=== PATIENT | female | born 1995 | race African-American/Black ===

== ENCOUNTER 2016-12-17 13:43 | Inpatient (IN) | payer OTHER ==
[~2016-12-17] VITALS: Ht 157.5 cm; Wt 68.0 kg
[~2016-12-17 13:43] MED LIST: HYDR-2758 PO; ONDA4TAB10 SL; PREN1TAB58 PO; PROM25TA10 PO
[2016-12-17 15:00] LABS: NEG OBC AMNIO NEG; POS OBC AMNIO POS
[2016-12-17] MEDS ORDERED: BUTORPHANOL 2 MG/ML VIAL. IV PRN ×2 (15:45)
[2016-12-17] MEDS ORDERED: fentaNYL PF VIAL 100 MCG/2 ML VIAL IV PRN (15:45)
[2016-12-17] MEDS ORDERED: 0.9 % SODIUM CHLORIDE 10 ML DISP.SYRIN. IV PRN ×2 (15:45→22:30)
[2016-12-17] MEDS ORDERED: OXYTOCIN 30 UNIT/500 ML PREMIX 500 ML IV PRN ×2 (15:45→22:30)
[2016-12-17] MEDS ORDERED: IBUPROFEN 600 MG TABLET. PO PRN (15:45)
[2016-12-17] MEDS ORDERED: TERBUTALINE 1 MG/ML VIAL. SQ PRN (15:45)
[2016-12-17] MEDS ORDERED: LIDOCAINE 1% PF 30 ML VIAL. INJ PRN (15:45)
[2016-12-17 16:05] LABS: HEMATOCRIT 30.8 % (36.0-47.0); HEMOGLOBIN 10.1 g/dL (12.0-15.5); RED BLOOD COUNT 3.67 x10^6/uL (3.50-5.40); RED CELL DISTRIBUTION WIDTH 14.5 % (11.5-14.5); WHITE BLOOD COUNT 7.7 x10^3/uL (4.0-11.0)
[2016-12-17] MEDS: IV RINGERS,LACTATED 1000ML 1,000 ML IV SCH ×2 (19:12→20:49)
[2016-12-17] MEDS ORDERED: ROPIVacaine 0.2% IN 0.9%NACL PF 40 MG/20 ML DISP.SYRIN. ONE (21:12)
[2016-12-17] MEDS ORDERED: L&D EPIDURAL CASSETTE 0 ML EP ONE (21:12)
[2016-12-17] MEDS ORDERED: LIDOCAINE 2% PF Vial for OR 5 ML VIAL. ONE (21:33)
--- NOTE | 2016-12-17 22:17 | PDOC1 ---
OB - History Hx of Present Care: Good Care Ultrasounds: Normal mid trimester US Obstetrical Complications: None Medical Complications: None Past Family/Social History * Past Medical, Surgical, Family and Obstetric Histories reviewed from chart. Rubella: Immune RPR/VDRL: Negative GBS Status: Negative HBsAG: Negative OB - Chief Complaint & HPI Date of Admission: Date of Admission: Dec 17, 2016 at 13:43 Chief Complaint/History : 1 Para: 0 EGA: 38 Reason for admission: active labor Admission Nurse Assessment Rev: Yes Problems: OB - Admission Exam Physical Exam Vitals: VS - Last 72 Hours, by Label Date Time Temp Pulse Resp B/P (MAP) Pulse Ox O2 Delivery O2 Flow Rate FiO2 12/17/16 19:13 20 HEENT: Normal Heart: Regular Rate Lungs: Clear Abdomen: Gravid, Non tender, Soft Extremities: Edema Reflexes: Normal Cervical Dilatation: 3cm Effacement: 75% Station: -3 Membranes: Ruptured Amniotic Fluid: Clear Heart Rate: Normal Accelerations: Accelerations Present Decelerations: No decelerations Contractions on Admission: 6-10 Minutes Apart Intensity: Moderate Text A: 38 wks IUP SROM Active labor P: Admit for labor management. Start pitocin augmentation. LUKE OCONNOR Jr, MD Dec 17, 2016 22:17
--- NOTE | 2016-12-17 22:19 | PDOC ---
VAGINAL DELIVERY DATE DATE: 12/17/16 TIME: 22:17 : 1 Para: 1 EGA: 38 VAGINAL DELIVERY: VTX VACCUM ASSISTED: No PLACENTA: Spontaneous 8/9 SEX: Female WEIGHT Weight [2835 gm ] Nuchal Cord: Yes, Times 1 Amniotic Fluid: Clear PAIN: Natural EPISIOTOMY: Yes (2nd degree midline episiotomy) EXTENSION: No REPAIRED WITH 2-0 vicryl EBL 300 ml COMPLICATIONS none CONDITION pt. stable Signs of Intrauterine Infectio: None Shoulder Dystocia: No Problems: LUKE OCONNOR Jr, MD Dec 17, 2016 22:19
[2016-12-17] MEDS ORDERED: ZOLPIDEM 5 MG TABLET. PO PRN (22:30)
[2016-12-17] MEDS ORDERED: MAGNESIUM HYDROXIDE 2,400 MG/30 ML ORAL.SUSP. PO PRN (22:30)
[2016-12-17] MEDS ORDERED: diphenhydrAMINE HCL 25 MG CAPSULE PO PRN (22:30)
[2016-12-17] MEDS ORDERED: BENZOCAINE 20% TOPICAL AEROSOL SPRAY 57GM CAN. TP PRN (22:30)
[2016-12-17] MEDS ORDERED: SIMETHICONE 80 MG TAB.CHEW PO PRN (22:30)
[2016-12-17] MEDS ORDERED: MMR per PROTOCOL. MC PRN (22:30)
[2016-12-17] MEDS ORDERED: DOCUSATE SODIUM 100 MG CAPSULE. PO PRN (22:30)
[2016-12-17] MEDS ORDERED: HYDROCORTISONE 1% TOPICAL OINTMENT 30GM TUBE. TP PRN (22:30)
[2016-12-17] MEDS ORDERED: PHENYLEPH/MINERAL OIL/PETROLAT RECTAL OINTMENT 28GM TUBE. RC PRN (22:30)
[2016-12-17] MEDS ORDERED: ACETAMINOPHEN 325 MG TABLET. PO PRN (22:30)
[2016-12-17] MEDS ORDERED: MAG HYDROX/ALUMINUM HYD/SIMETH 30 ML ORAL.SUSP PO PRN (22:30)
[2016-12-18] MEDS: oxyCODONE/APAP 5/325 1 TAB TABLET PO PRN ×3 (00:01→23:06)
[2016-12-18 01:30] VITALS: BP 99/51
[2016-12-18 02:30] VITALS: BP 102/58
[2016-12-18] MEDS: IBUPROFEN 800 MG TABLET. PO PRN ×2 (07:49→18:31)
[2016-12-18 07:57] LABS: BASO # 0.1 x10^3/uL (0.0-0.2); BASO % 1 % (0-3); EOS % 0 % (0-3); HEMOGLOBIN 8.4 g/dL (12.0-15.5); LYMPH % 12 % (24-48); MEAN CORPUSCULAR HEMOGLOBIN 27 pg (25-35); MEAN CORPUSCULAR HGB CONC 33 g/dL (31-37); MEAN CORPUSCULAR VOLUME 83 fL (79-100); MONO % 9 % (0-9); NEUT % 78 % (31-73); PLATELET COUNT 171 x10^3/uL (140-400); RED BLOOD COUNT 3.12 x10^6/uL (3.50-5.40); RED CELL DISTRIBUTION WIDTH 14.2 % (11.5-14.5)
[2016-12-18 08:35] VITALS: BP 114/72
[2016-12-18] MEDS: FERROUS SULFATE 325 MG TABLET. PO SCH ×2 (09:01→18:31)
--- NOTE | 2016-12-18 09:05 | PDOC ---
OB Progress Note Date of Service 12/18/16 Time of Evaluation 0900 Notes Pt. feeling well. No complaints. Lab Laboratory Tests Test 12/17/16 14:20 12/17/16 15:30 12/18/16 07:45 Amniotic Fluid Swab Test Positive White Blood Count 7.7 x10^3/uL (4.0-11.0) 16.0 x10^3/uL (4.0-11.0) Red Blood Count 3.67 x10^6/uL (3.50-5.40) 3.12 x10^6/uL (3.50-5.40) Hemoglobin 10.1 g/dL (12.0-15.5) 8.4 g/dL (12.0-15.5) Hematocrit 30.8 % (36.0-47.0) 26.0 % (36.0-47.0) Mean Corpuscular Volume 84 fL (79-100) 83 fL (79-100) Mean Corpuscular Hemoglobin 28 pg (25-35) 27 pg (25-35) Mean Corpuscular Hemoglobin Concent 33 g/dL (31-37) 33 g/dL (31-37) Red Cell Distribution Width 14.5 % (11.5-14.5) 14.2 % (11.5-14.5) Platelet Count 211 x10^3/uL (140-400) 171 x10^3/uL (140-400) Neutrophils (%) (Auto) 78 % (31-73) Lymphocytes (%) (Auto) 12 % (24-48) Monocytes (%) (Auto) 9 % (0-9) Eosinophils (%) (Auto) 0 % (0-3) Basophils (%) (Auto) 1 % (0-3) Neutrophils # (Auto) 12.4 x10^3uL (1.8-7.7) Lymphocytes # (Auto) 2.0 x10^3/uL (1.0-4.8) Monocytes # (Auto) 1.5 x10^3/uL (0.0-1.1) Eosinophils # (Auto) 0.0 x10^3/uL (0.0-0.7) Basophils # (Auto) 0.1 x10^3/uL (0.0-0.2) Laboratory Tests Test 12/17/16 14:20 12/17/16 15:30 12/18/16 07:45 Amniotic Fluid Swab Test Positive White Blood Count 7.7 x10^3/uL (4.0-11.0) 16.0 x10^3/uL (4.0-11.0) Red Blood Count 3.67 x10^6/uL (3.50-5.40) 3.12 x10^6/uL (3.50-5.40) Hemoglobin 10.1 g/dL (12.0-15.5) 8.4 g/dL (12.0-15.5) Hematocrit 30.8 % (36.0-47.0) 26.0 % (36.0-47.0) Mean Corpuscular Volume 84 fL (79-100) 83 fL (79-100) Mean Corpuscular Hemoglobin 28 pg (25-35) 27 pg (25-35) Mean Corpuscular Hemoglobin Concent 33 g/dL (31-37) 33 g/dL (31-37) Red Cell Distribution Width 14.5 % (11.5-14.5) 14.2 % (11.5-14.5) Platelet Count 211 x10^3/uL (140-400) 171 x10^3/uL (140-400) Neutrophils (%) (Auto) 78 % (31-73) Lymphocytes (%) (Auto) 12 % (24-48) Monocytes (%) (Auto) 9 % (0-9) Eosinophils (%) (Auto) 0 % (0-3) Basophils (%) (Auto) 1 % (0-3) Neutrophils # (Auto) 12.4 x10^3uL (1.8-7.7) Lymphocytes # (Auto) 2.0 x10^3/uL (1.0-4.8) Monocytes # (Auto) 1.5 x10^3/uL (0.0-1.1) Eosinophils # (Auto) 0.0 x10^3/uL (0.0-0.7) Basophils # (Auto) 0.1 x10^3/uL (0.0-0.2) Medications Current Medications Sodium Chloride (Normal Saline Flush) 3 ml QSHIFT PRN IV AFTER MEDS AND BLOOD DRAWS; Start 12/17/16 at 15:45 Ringer's Solution 1,000 ml @ 125 mls/hr Q8H IV Last administered on 12/17/16 20:49; Start 12/17/16 at 15:41 Butorphanol Tartrate (Stadol) 1 mg PRN Q1HR PRN IV mild to moderate labor pain ; Start 12/17/16 at 15:45 Butorphanol Tartrate (Stadol) 2 mg PRN Q1HR PRN IV Severe labor pain; Start at 15:45 Fentanyl Citrate (Fentanyl 2ml Vial) 100 mcg PRN Q30MIN PRN IV Severe pain Last administered on 12/17/16 19:13; Start 12/17/16 at 15:45 Terbutaline Sulfate (Brethine) 0.25 mg 1X PRN PRN SQ SEE COMMENTS; Start at 15:45; Stop 12/18/16 at 15:44 Lidocaine HCl 30 ml 1X PRN PRN INJ SEE COMMENTS Last administered on 12/17/16 22:11; Start 12/17/16 at 15:45; Stop 12/19/16 at 15:44 Oxytocin/Sodium Chloride 500 ml @ 0 mls/hr CONT PRN PRN IV Post delivery bleeding Last administered on 12/17/16 19:13; Start 12/17/16 at 15:45 Ibuprofen (Motrin) 600 mg PRN Q6HRS PRN PO PAIN Last administered on 12/18/16 00:01; Start 12/17/16 at 15:45 Ropivacaine/ Fentanyl/NS 0 ml @ As Directed STK-MED ONCE EP ; Start 12/17/16 at 21:12; Stop 12/17/16 at 21:13; Status DC Ropivacaine 40 mg STK-MED ONCE .ROUTE ; Start 12/17/16 at 21:12; Stop 12/17/16 at 21:13; Status DC Lidocaine HCl (Lidocaine Pf 2% Vial) 5 ml STK-MED ONCE .ROUTE ; Start 12/17/16 at 21:33; Stop 12/17/16 at 21:34; Status DC Sodium Chloride (Normal Saline Flush) 10 ml QSHIFT PRN IV AFTER MEDS AND BLOOD DRAWS; Start 12/17/16 at 22:30 Oxytocin/Sodium Chloride 500 ml @ 62.5 mls/hr CONT PRN IV SEE I/O RECORD; Start 12/17/16 at 22:30; Stop 12/18/16 at 06:29; Status DC Acetaminophen (Tylenol) 650 mg PRN Q6HRS PRN PO MILD PAIN / TEMP; Start at 22:30 Ibuprofen (Motrin) 800 mg PRN Q8HRS PRN PO INFLAMMATION/PAIN PREVENTION Last administered on 12/18/16 07:49; Start 12/17/16 at 22:30 Docusate Sodium (Colace) 100 mg PRN BID PRN PO CONSTIPATION Last administered on 12/18/16 09:01; Start 12/17/16 at 22:30 Magnesium Hydroxide (Milk Of Magnesia) 2,400 mg PRN DAILY PRN PO CONSTIPATION; Start 12/17/16 at 22:30 Al Hydroxide/Mg Hydroxide (Mylanta Plus Xs) 30 ml PRN Q4HRS PRN PO HEARTBURN / GAS; Start 12/17/16 at 22:30 Simethicone (Gas-X) 80 mg PRN AFTMEALHC PRN PO GAS / BLOATING; Start 12/17/16 at 22:30 Diphenhydramine HCl (Benadryl) 25 mg PRN Q6HRS PRN PO ITCHING; Start 12/17/16 at 22:30 Benzocaine (Americaine) 1 spray PRN QID PRN TP TOPICAL PAIN; Start 12/17/16 at 22:30 Phenyleph/Shark Oil/Min Oil/Petrol (Preparation H) 1 monica PRN QID PRN RC RECTAL PAIN; Start 12/17/16 at 22:30 Hydrocortisone (Cortaid) 1 monica PRN QID PRN TP PERINEAL PAIN; Start 12/17/16 at 22:30 Ferrous Sulfate (Feosol) 325 mg BIDWMEALS PO Last administered on 12/18/16 09: 01; Start 12/18/16 at 08:00 Zolpidem Tartrate (Ambien) 5 mg PRN QHS PRN PO INSOMNIA, MAY REPEAT X1; Start 12/17/16 at 22:30 Info (Do NOT chart on this placeholder) 1 ea 1X PRN PRN MC SEE COMMENTS; Start 12/17/16 at 22:30 Info (Do NOT chart on this placeholder) 1 ea 1X PRN PRN MC SEE COMMENTS; Start 12/17/16 at 22:30 Oxycodone/ Acetaminophen (Percocet 5/325) 2 tab PRN Q4HRS PRN PO MODERATE PAIN , SEVERE PAIN Last administered on 12/18/16t 00:01; Start 12/17/16 at 22:30 Active Scripts Active Zofran Odt (Ondansetron) 4 Mg Tab.rapdis 1 Tab SL PRN Q8HRS PRN Vitamins ( Vits W-Ca,Fe,Fa(<1MG)) 1 Each Tablet 1 Tab PO DAILY Hydrocodone-Apap 5-325 (Hydrocodone Bit/Acetaminophen) 1 Each Tablet 1 Tab PO PRN Q6HRS PRN Promethazine Hcl 25 Mg Tablet 1 Tab PO PRN Q6HRS Exam Abd: soft, non tender, fundus firm Assessment PPD#1 s/p Plan of Care: Continue current Tx, Mgmt LUKE OCONNOR Jr, MD Dec 18, 2016 09:04
[2016-12-18 13:18] LABS: RPR REFLEX Non Reactive (Non Reactive)
[2016-12-18 14:29] VITALS: BP 104/62
[2016-12-18 18:20] VITALS: BP 104/65
[2016-12-18 23:00] VITALS: BP 105/66
[2016-12-19] MEDS: IBUPROFEN 800 MG TABLET. PO PRN ×2 (03:50→11:48)
[2016-12-19] MEDS: oxyCODONE/APAP 5/325 1 TAB TABLET PO PRN (03:51)
[2016-12-19 03:56] VITALS: BP 112/66
--- NOTE | 2016-12-19 08:34 | PDOC ---
OB Progress Note Date of Service 12/19/16 Time of Evaluation 0830 Notes Pt. feeling well. No complaints. Lab Laboratory Tests Test 12/17/16 14:20 12/17/16 15:30 12/18/16 07:45 Amniotic Fluid Swab Test Positive White Blood Count 7.7 x10^3/uL (4.0-11.0) 16.0 x10^3/uL (4.0-11.0) Red Blood Count 3.67 x10^6/uL (3.50-5.40) 3.12 x10^6/uL (3.50-5.40) Hemoglobin 10.1 g/dL (12.0-15.5) 8.4 g/dL (12.0-15.5) Hematocrit 30.8 % (36.0-47.0) 26.0 % (36.0-47.0) Mean Corpuscular Volume 84 fL (79-100) 83 fL (79-100) Mean Corpuscular Hemoglobin 28 pg (25-35) 27 pg (25-35) Mean Corpuscular Hemoglobin Concent 33 g/dL (31-37) 33 g/dL (31-37) Red Cell Distribution Width 14.5 % (11.5-14.5) 14.2 % (11.5-14.5) Platelet Count 211 x10^3/uL (140-400) 171 x10^3/uL (140-400) RPR Titer Additional Testing Non reactive (Non Reactive) Neutrophils (%) (Auto) 78 % (31-73) Lymphocytes (%) (Auto) 12 % (24-48) Monocytes (%) (Auto) 9 % (0-9) Eosinophils (%) (Auto) 0 % (0-3) Basophils (%) (Auto) 1 % (0-3) Neutrophils # (Auto) 12.4 x10^3uL (1.8-7.7) Lymphocytes # (Auto) 2.0 x10^3/uL (1.0-4.8) Monocytes # (Auto) 1.5 x10^3/uL (0.0-1.1) Eosinophils # (Auto) 0.0 x10^3/uL (0.0-0.7) Basophils # (Auto) 0.1 x10^3/uL (0.0-0.2) Medications Current Medications Sodium Chloride (Normal Saline Flush) 3 ml QSHIFT PRN IV AFTER MEDS AND BLOOD DRAWS; Start 12/17/16 at 15:45 Ringer's Solution 1,000 ml @ 125 mls/hr Q8H IV Last administered on 12/17/16 20:49; Start 12/17/16 at 15:41 Butorphanol Tartrate (Stadol) 1 mg PRN Q1HR PRN IV mild to moderate labor pain ; Start 12/17/16 at 15:45 Butorphanol Tartrate (Stadol) 2 mg PRN Q1HR PRN IV Severe labor pain; Start at 15:45 Fentanyl Citrate (Fentanyl 2ml Vial) 100 mcg PRN Q30MIN PRN IV Severe pain Last administered on 12/17/16 19:13; Start 12/17/16 at 15:45 Terbutaline Sulfate (Brethine) 0.25 mg 1X PRN PRN SQ SEE COMMENTS; Start at 15:45; Stop 12/18/16 at 15:44; Status DC Lidocaine HCl 30 ml 1X PRN PRN INJ SEE COMMENTS Last administered on 12/17/16 22:11; Start 12/17/16 at 15:45; Stop 12/19/16 at 15:44 Oxytocin/Sodium Chloride 500 ml @ 0 mls/hr CONT PRN PRN IV Post delivery bleeding Last administered on 12/17/16 19:13; Start 12/17/16 at 15:45 Ibuprofen (Motrin) 600 mg PRN Q6HRS PRN PO PAIN Last administered on 12/18/16 00:01; Start 12/17/16 at 15:45 Ropivacaine/ Fentanyl/NS 0 ml @ As Directed STK-MED ONCE EP ; Start 12/17/16 at 21:12; Stop 12/17/16 at 21:13; Status DC Ropivacaine 40 mg STK-MED ONCE .ROUTE ; Start 12/17/16 at 21:12; Stop 12/17/16 at 21:13; Status DC Lidocaine HCl (Lidocaine Pf 2% Vial) 5 ml STK-MED ONCE .ROUTE ; Start 12/17/16 at 21:33; Stop 12/17/16 at 21:34; Status DC Sodium Chloride (Normal Saline Flush) 10 ml QSHIFT PRN IV AFTER MEDS AND BLOOD DRAWS; Start 12/17/16 at 22:30 Oxytocin/Sodium Chloride 500 ml @ 62.5 mls/hr CONT PRN IV SEE I/O RECORD; Start 12/17/16 at 22:30; Stop 12/18/16 at 06:29; Status DC Acetaminophen (Tylenol) 650 mg PRN Q6HRS PRN PO MILD PAIN / TEMP; Start at 22:30 Ibuprofen (Motrin) 800 mg PRN Q8HRS PRN PO INFLAMMATION/PAIN PREVENTION Last administered on 12/19/16 03:50; Start 12/17/16 at 22:30 Docusate Sodium (Colace) 100 mg PRN BID PRN PO CONSTIPATION Last administered on 12/18/16 09:01; Start 12/17/16 at 22:30 Magnesium Hydroxide (Milk Of Magnesia) 2,400 mg PRN DAILY PRN PO CONSTIPATION; Start 12/17/16 at 22:30 Al Hydroxide/Mg Hydroxide (Mylanta Plus Xs) 30 ml PRN Q4HRS PRN PO HEARTBURN / GAS; Start 12/17/16 at 22:30 Simethicone (Gas-X) 80 mg PRN AFTMEALHC PRN PO GAS / BLOATING; Start 12/17/16 at 22:30 Diphenhydramine HCl (Benadryl) 25 mg PRN Q6HRS PRN PO ITCHING; Start 12/17/16 at 22:30 Benzocaine (Americaine) 1 spray PRN QID PRN TP TOPICAL PAIN; Start 12/17/16 at 22:30 Phenyleph/Shark Oil/Min Oil/Petrol (Preparation H) 1 monica PRN QID PRN RC RECTAL PAIN; Start 12/17/16 at 22:30 Hydrocortisone (Cortaid) 1 monica PRN QID PRN TP PERINEAL PAIN; Start 12/17/16 at 22:30 Ferrous Sulfate (Feosol) 325 mg BIDWMEALS PO Last administered on 12/18/16 18: 31; Start 12/18/16 at 08:00 Zolpidem Tartrate (Ambien) 5 mg PRN QHS PRN PO INSOMNIA, MAY REPEAT X1; Start 12/17/16 at 22:30 Info (Do NOT chart on this placeholder) 1 ea 1X PRN PRN MC SEE COMMENTS; Start 12/17/16 at 22:30 Info (Do NOT chart on this placeholder) 1 ea 1X PRN PRN MC SEE COMMENTS; Start 12/17/16 at 22:30 Oxycodone/ Acetaminophen (Percocet 5/325) 2 tab PRN Q4HRS PRN PO MODERATE PAIN , SEVERE PAIN Last administered on 12/19/16t 03:51; Start 12/17/16 at 22:30 Active Scripts Active Zofran Odt (Ondansetron) 4 Mg Tab.rapdis 1 Tab SL PRN Q8HRS PRN Vitamins ( Vits W-Ca,Fe,Fa(<1MG)) 1 Each Tablet 1 Tab PO DAILY Hydrocodone-Apap 5-325 (Hydrocodone Bit/Acetaminophen) 1 Each Tablet 1 Tab PO PRN Q6HRS PRN Promethazine Hcl 25 Mg Tablet 1 Tab PO PRN Q6HRS Exam Abd: soft, non tender, fundus firm Assessment PPD#2 s/p Plan of Care: See new orders (D/c home) LUKE OCONNOR Jr, MD Dec 19, 2016 08:34
--- NOTE | 2016-12-19 08:35 | DISCH ---
DISCHARGE INSTRUCTIONS Condition on Discharge Condition on Discharge: Stable Activity After Discharge Activity Instructions for Disc: Activity as tolerated Lifting Instructions after Dis: No heavy lifting Driving Instructions after Dis: Do not drive today Diet after Discharge Diet after Discharge: Regular Contacting the DRBrittany after DC Call your doctor for: Concerns you may have Follow-Up Follow up with: Dr. Jennings in 6 weeks. LUKE JENNINGS Jr, MD Dec 19, 2016 08:35
[2016-12-19] MEDS ORDERED: IBUP-1060 PO (08:36)
[2016-12-19] MEDS ORDERED: DOCU-109 PO (08:36)
[2016-12-19] MEDS ORDERED: OXYC-323 PO (08:36)
[2016-12-19] MEDS: FERROUS SULFATE 325 MG TABLET. PO SCH (09:31)
[2016-12-19 13:50] VITALS: BP 107/71
== END 2016-12-19 14:14 | disposition home or self-care (01) | DRG 775 ==
LOC: 3 SO LND 13:43 → OBSVTOIN 15:46 → 3 SO LND 12-18 01:30
PROVIDERS: ADMIT Obstetrics & Gynecology; ATTEND Obstetrics & Gynecology
PROC: 0W8NXZZ Division of Female Perineum, External Approach (ICD-10-PCS; principal; 2016-12-17)
PROC: 10E0XZZ Delivery of Products of Conception, External Approach (ICD-10-PCS; 2016-12-17)
DX: O69.81X0 Labor and delivery complicated by cord around neck, without compression, not applicable or unspecified (principal); Z37.0 Single live birth; Z3A.38 38 weeks gestation of pregnancy
CPT/HCPCS: 36415; 84112; 85027; 86593; 86850; 86900; 86901; C1887; G0378; G0379; J2001; J2590; J3010; J7120

== ENCOUNTER 2018-04-29 10:49 | Observation (INO) | payer SELFPAY ==
[~2018-04-29 10:49] MED LIST changes: +DOCU-109 PO; -HYDR-2758 PO; +HYDR-2761 PO; +IBUP-1060 PO; +OXYC1TAB15 PO
[2018-04-29] MEDS ORDERED: IV RINGERS,LACTATED 1000ML 1,000 ML IV SCH (11:30)
[2018-04-29 11:47] LABS: BILIRUBIN,URINE SMALL (NEG); CLARITY,URINE CLEAR; COLOR,URINE YELLOW; NITRITE,URINE NEGATIVE (NEG); PH,URINE 6.5; PROTEIN,URINE NEGATIVE (NEG-TRACE)
[2018-04-29 11:53] LABS: BARBITURATES NEG (NEG); BENZODIAZEPINES NEG (NEG); CANNABINOIDS POS (NEG); COCAINE NEG (NEG); METHADONE NEG (NEG); OPIATES NEG (NEG); PHENCYCLIDINE NEG (NEG)
[2018-04-29 11:54] LABS: AMPHETAMINE/METHAMPHETAMINE NEG (NEG)
[2018-04-29 12:04] LABS: SQUAMOUS EPITHELIAL CELL,UR MOD /LPF
[2018-04-29 12:07] LABS: BACTERIA,URINE MODERATE /HPF (0-FEW); RBC,URINE OCC /HPF (0-2)
[2018-04-29 13:42] LABS: BASO % 0 % (0-3); EOS % 1 % (0-3); HEMATOCRIT 26.2 % (36.0-47.0); HEMOGLOBIN 8.9 g/dL (12.0-15.5); LYMPH % 30 % (24-48); MEAN CORPUSCULAR HEMOGLOBIN 28 pg (25-35); MEAN CORPUSCULAR HGB CONC 34 g/dL (31-37); MEAN CORPUSCULAR VOLUME 84 fL (79-100); MONO # 0.5 x10^3/uL (0.0-1.1); MONO % 8 % (0-9); NEUT # 4.1 x10^3uL (1.8-7.7); NEUT % 61 % (31-73); PLATELET COUNT 156 x10^3/uL (140-400); RED BLOOD COUNT 3.12 x10^6/uL (3.50-5.40); WHITE BLOOD COUNT 6.6 x10^3/uL (4.0-11.0)
[2018-04-29 13:56] LABS: CALCIUM 8.2 mg/dL (8.5-10.1); CREATININE 0.6 mg/dL (0.6-1.0); GFR 152.7; POTASSIUM 3.2 mmol/L (3.5-5.1)
[2018-04-29 14:05] LABS: ALBUMIN 2.4 g/dL (3.4-5.0); ALBUMIN/GLOBULIN RATIO 0.8 (1.0-1.7); TOTAL BILIRUBIN 0.1 mg/dL (0.2-1.0); TOTAL PROTEIN 5.3 g/dL (6.4-8.2)
== END 2018-04-29 15:05 | disposition home or self-care (01) ==
LOC: 3 SO LND 10:49
PROVIDERS: ADMIT Specialist; ATTEND Specialist
DX: O21.2 Late vomiting of pregnancy (principal); O26.892 Other specified pregnancy related conditions, second trimester; R19.7 Diarrhea, unspecified; R11.0 Nausea; Z3A.24 24 weeks gestation of pregnancy
CPT/HCPCS: 36415; 80053; 80307; 81001; 84443; 85025; 87086; G0378; G0379

== ENCOUNTER 2018-07-09 13:30 | Observation (INO) | payer OTHER | END 2018-07-09 14:10 | disposition home or self-care (01) | LOC: 3 SO LND 13:30 | PROVIDERS: ADMIT Specialist; ATTEND Specialist | DX: O9A.213 Injury, poisoning and certain other consequences of external causes complicating pregnancy, third trimester (principal); M25.552 Pain in left hip; M25.562 Pain in left knee; Z3A.34 34 weeks gestation of pregnancy; W00.0XXA Fall on same level due to ice and snow, initial encounter; Y93.89 Activity, other specified; Y92.89 Other specified places as the place of occurrence of the external cause | CPT/HCPCS: 59025; G0379 ==

== ENCOUNTER 2018-07-09 14:34 | Observation (INO) | payer OTHER ==
[~2018-07-09] VITALS: Ht 157.5 cm; Wt 68.0 kg
[2018-07-09] MEDS ORDERED: ACETAMINOPHEN 500 MG TABLET PO ONE (15:30)
--- NOTE | 2018-07-09 16:05 | PHYS DOC ---
Past Medical History Past Medical History: No Pertinent History Past Surgical History: No Surgical History Alcohol Use: None Drug Use: None Adult General Chief Complaint Chief Complaint: HIP PAIN HPI HPI Patient is a 22 year old female who presents with 8 months slipped and fell on her driveway at 12 PM today. Patient complains of left hip and left abdomen pain and denies vaginal bleeding. Patient was evaluated by Dr. Larson in OB before she was brought back down to the ED. Patient currently states that she has some lower abdomen cramping and hip pain that she rates at 8 out of 10. Review of Systems Review of Systems Constitutional: Denies fever or chills [] Eyes: Denies change in visual acuity, redness, or eye pain [] HENT: Denies nasal congestion or sore throat [] Respiratory: Denies cough or shortness of breath [] Cardiovascular: No additional information not addressed in HPI [] GI: Left side and lower abdominal pain, denies nausea, vomiting, bloody stools or diarrhea [] : Denies dysuria or hematuria [] Musculoskeletal: Denies back pain or left hip joint pain [] Integument: Denies rash or skin lesions [] Neurologic: Denies headache, focal weakness or sensory changes [] All other systems were reviewed and found to be within normal limits, except as documented in this note. Current Medications Current Medications Current Medications Medications (Trade) Dose Ordered Sig/Kelly Start Time Stop Time Status Last Admin Dose Admin Acetaminophen (Tylenol) 1,000 mg 1X ONCE 07/09/18 15:30 07/09/18 15:31 DC 07/09/18 15:30 1,000 MG Allergies Allergies Allergies Coded Allergies Type Severity Reaction Last Updated Verified No Known Drug Allergies 12/23/14 No Physical Exam Physical Exam Constitutional: Well developed, well nourished, no acute distress, non-toxic appearance. [] HENT: Normocephalic, atraumatic, bilateral external ears normal, oropharynx moist, no oral exudates, nose normal. [] Eyes: PERRLA, EOMI, conjunctiva normal, no discharge. [] Neck: Normal range of motion, no tenderness, supple, no stridor. [] Cardiovascular:Heart rate regular rhythm, no murmur [] Lungs & Thorax: Bilateral breath sounds clear to auscultation [] Abdomen: Bowel sounds normal, soft, left lower side tenderness, no masses, no pulsatile masses. [] Skin: Warm, dry, no erythema, no rash. [] Back: No tenderness, no CVA tenderness. [] Extremities: Left Hip tenderness, no cyanosis, no clubbing, ROM intact, no edema. [] Neurologic: Alert and oriented X 3, normal motor function, normal sensory function, no focal deficits noted. [] Psychologic: Affect normal, judgement normal, mood normal. [] Current Patient Data Vital Signs Vital Signs Date Time Temp Pulse Resp B/P (MAP) Pulse Ox O2 Delivery O2 Flow Rate FiO2 07/09/18 15:30 98.3 100 18 117/60 (79) 99 Room Air 98.3 EKG EKG [] Radiology/Procedures Radiology/Procedures [] Course & Med Decision Making Course & Med Decision Making Patient is a 22 year old female who presents with 8 months slipped and fell on her driveway at 12 PM today. Patient complains of left hip and left abdomen pain and denies vaginal bleeding. Patient was evaluated by Dr. Larson in OB before she was brought back down to the ED. Patient currently states that she has some lower abdomen cramping and hip pain that she rates at 8 out of 10. Patient has intact range of motion of the left leg at the hip joint. It is tender with movement but she is able to move at the hip joint in all directions. Patient is up and walking in room and can bear weight on the leg. Patient is complaining of increased lower abdominal cramping more so that she had when she was being observed in OB. Patient still has no vaginal bleeding or discharge. Patient is refusing any x-rays. There is no deformity at the hip or bruising seen. No bruising to the abdomen. Although the abdomen on that left side is tender to palpate. I have called he states to send the patient back to OB. Patient is discharged from the ED and sent back to OB. Dragon Disclaimer Dragon Disclaimer This electronic medical record was generated, in whole or in part, using a voice recognition dictation system. Departure Departure Impression: Primary Impression: Fall Additional Impressions: Hip pain Lower abdominal pain Disposition: HOME, SELF-CARE Condition: STABLE Referrals: NO PCP (PCP) Patient Instructions: Contusion, Fall Prevention and Home Safety, Hip Pain Additional Instructions: Continue taking ibuprofen to using a heating pad. Plenty of fluids. Patient have any kind of vaginal bleeding or increased abdominal pain come to the ER or call your doctor immediately. Problem Qualifiers Primary Impression: Fall Encounter type: initial encounter Qualified Codes: W19.XXXA - Unspecified fall, initial encounter Additional Impressions: Hip pain Laterality: left Qualified Codes: M25.552 - Pain in left hip MOODY MEDINA APRN Jul 09, 2018 16:05
[2018-07-09 16:17] VITALS: BP 107/71
== END 2018-07-09 17:45 | disposition home or self-care (01) ==
LOC: ER 14:34 → 3 SO LND 16:11
PROVIDERS: ADMIT Specialist; ATTEND Specialist
DX: O9A.213 Injury, poisoning and certain other consequences of external causes complicating pregnancy, third trimester (principal); M25.552 Pain in left hip; R10.9 Unspecified abdominal pain; Z3A.34 34 weeks gestation of pregnancy; W01.0XXA Fall on same level from slipping, tripping and stumbling without subsequent striking against object, initial encounter; Y92.89 Other specified places as the place of occurrence of the external cause
CPT/HCPCS: 99284; G0378; G0379

== ENCOUNTER 2018-08-03 08:22 | Inpatient (IN) | payer OTHER ==
[~2018-08-03] VITALS: Ht 157.5 cm; Wt 66.7 kg
[2018-08-03] MEDS ORDERED: OXYTOCIN 30 UNIT/500 ML PREMIX 500 ML IV ONE (08:33)
[2018-08-03] MEDS ORDERED: LIDOCAINE 1% PF 30 ML VIAL. ONE (08:33)
[2018-08-03] MEDS ORDERED: OXYTOCIN PREMIX 30 UNIT/500 ML BAG. IV ONE (09:00)
[2018-08-03] MEDS ORDERED: OXYTOCIN 10 UNIT/ML VIAL. ONE (09:00)
--- NOTE | 2018-08-03 09:13 | PDOC1 ---
OB - History Hx of Present Care: Good Care Ultrasounds: Normal mid trimester US Obstetrical Complications: None Medical Complications: None Past Family/Social History * Past Medical, Surgical, Family and Obstetric Histories reviewed from chart. Rubella: Immune RPR/VDRL: Negative GBS Status: Negative HBsAG: Negative OB - Chief Complaint & HPI Date of Admission: Date of Admission: Aug 03, 2018 at 08:34 Chief Complaint/History : 2 Para: 1 EGA: 38 Reason for admission: active labor Admission Nurse Assessment Rev: Yes OB - Admission Exam Physical Exam HEENT: Normal Heart: Regular Rate Lungs: Clear Abdomen: Gravid, Non tender, Soft Extremities: Edema Reflexes: Normal Cervical Dilatation: 10cm Effacement: 100% Station: +2 Membranes: Intact Heart Rate: Normal Accelerations: Accelerations Present Decelerations: No decelerations Contractions on Admission: < 5 Minutes Apart Intensity: Firm Text A: 38 wks IUP Active labor P: Admit for expectant delivery. LUKE OCONNOR Jr, MD Aug 03, 2018 09:13
[2018-08-03] MEDS ORDERED: MAG HYDROX/ALUMINUM HYD/SIMETH 30 ML ORAL.SUSP PO PRN (09:15)
[2018-08-03] MEDS ORDERED: BENZOCAINE 20% TOPICAL AEROSOL SPRAY 57GM CAN. TP PRN (09:15)
[2018-08-03] MEDS ORDERED: OXYTOCIN 30 UNIT/500 ML PREMIX 500 ML IV PRN (09:15)
[2018-08-03] MEDS ORDERED: ZOLPIDEM 5 MG TABLET. PO PRN (09:15)
[2018-08-03] MEDS ORDERED: SIMETHICONE 80 MG TAB.CHEW PO PRN (09:15)
[2018-08-03] MEDS ORDERED: 0.9 % SODIUM CHLORIDE 10 ML DISP.SYRIN. IV PRN ×2 (09:15→09:45)
[2018-08-03] MEDS ORDERED: HYDROCORTISONE 1% TOPICAL OINTMENT 30GM TUBE. TP PRN (09:15)
[2018-08-03] MEDS ORDERED: MAGNESIUM HYDROXIDE 2,400 MG/30 ML ORAL.SUSP. PO PRN (09:15)
[2018-08-03] MEDS ORDERED: MMR per PROTOCOL. MC PRN (09:15)
[2018-08-03] MEDS ORDERED: OXYTOCIN 10 UNIT/ML VIAL. IM ONE (09:15)
[2018-08-03] MEDS ORDERED: diphenhydrAMINE HCL 25 MG CAPSULE PO PRN (09:15)
[2018-08-03] MEDS ORDERED: PHENYLEPH/MINERAL OIL/PETROLAT RECTAL OINTMENT 28GM TUBE. RC PRN (09:15)
[2018-08-03] MEDS ORDERED: ACETAMINOPHEN 325 MG TABLET. PO PRN (09:15)
--- NOTE | 2018-08-03 09:15 | PDOC ---
VAGINAL DELIVERY DATE DATE: 08/03/18 TIME: 09:14 : 2 Para: 2 EGA: 38 VAGINAL DELIVERY: VTX VACCUM ASSISTED: No PLACENTA: Spontaneous 8/9 SEX: Female WEIGHT Weight [5 lbs. 13 oz. ] Nuchal Cord: No Amniotic Fluid: Clear PAIN: Natural EPISIOTOMY: No EXTENSION: Yes (1st degree midline laceration; hemostatic) REPAIRED WITH none EBL 300 ml COMPLICATIONS none CONDITION pt. stable Signs of Intrauterine Infectio: None Shoulder Dystocia: No LUKE OCONNOR Jr, MD Aug 03, 2018 09:15
[2018-08-03] MEDS ORDERED: IV RINGERS,LACTATED 1000ML 1,000 ML IV SCH (09:34)
[2018-08-03 09:39] LABS: AMPHETAMINE/METHAMPHETAMINE NEG (NEG); BARBITURATES NEG (NEG); BENZODIAZEPINES NEG (NEG); CANNABINOIDS POS (NEG); COCAINE NEG (NEG); METHADONE NEG (NEG); OPIATES NEG (NEG); PHENCYCLIDINE NEG (NEG)
[2018-08-03] MEDS: oxyCODONE/APAP 5/325 1 TAB TABLET PO PRN ×3 (09:44→22:50)
[2018-08-03] MEDS ORDERED: IBUPROFEN 400 MG TABLET. PO PRN (09:45)
[2018-08-03] MEDS: IBUPROFEN 400 MG TABLET. PO PRN ×2 (09:45→22:50)
[2018-08-03] MEDS ORDERED: LIDOCAINE 1% PF 30 ML VIAL. INJ PRN (09:45)
[2018-08-03 10:52] LABS: BASO % 0 % (0-3); EOS % 0 % (0-3); HEMATOCRIT 31.6 % (36.0-47.0); HEMOGLOBIN 10.1 g/dL (12.0-15.5); LYMPH # 1.2 x10^3/uL (1.0-4.8); LYMPH % 15 % (24-48); MEAN CORPUSCULAR HEMOGLOBIN 26 pg (25-35); MEAN CORPUSCULAR HGB CONC 32 g/dL (31-37); MEAN CORPUSCULAR VOLUME 82 fL (79-100); MONO # 0.5 x10^3/uL (0.0-1.1); MONO % 6 % (0-9); NEUT # 6.6 x10^3uL (1.8-7.7); NEUT % 79 % (31-73); PLATELET COUNT 212 x10^3/uL (140-400); RED BLOOD COUNT 3.87 x10^6/uL (3.50-5.40); RED CELL DISTRIBUTION WIDTH 14.1 % (11.5-14.5); WHITE BLOOD COUNT 8.4 x10^3/uL (4.0-11.0)
[2018-08-03 14:00] VITALS: BP 101/56
[2018-08-03] MEDS: DOCUSATE SODIUM 100 MG CAPSULE. PO PRN (16:13)
[2018-08-03 17:03] VITALS: BP 98/58
[2018-08-03 20:17] LABS: BILIRUBIN,URINE NEGATIVE (NEG); CLARITY,URINE CLEAR; COLOR,URINE YELLOW; NITRITE,URINE NEGATIVE (NEG); PH,URINE 6.5; PROTEIN,URINE NEGATIVE (NEG-TRACE); UROBILINOGEN,URINE 0.2 mg/dL (0.2 mg/dL)
[2018-08-03 20:22] LABS: BACTERIA,URINE FEW /HPF (0-FEW); RBC,URINE TNTC /HPF (0-2); SQUAMOUS EPITHELIAL CELL,UR MOD /LPF; WBC,URINE OCC /HPF (0-4)
[2018-08-03 21:30] VITALS: BP 116/74
[2018-08-04 02:00] VITALS: BP 114/79
[2018-08-04 04:37] LABS: BASO % 0 % (0-3); EOS # 0.1 x10^3/uL (0.0-0.7); EOS % 1 % (0-3); HEMATOCRIT 27.2 % (36.0-47.0); HEMOGLOBIN 8.6 g/dL (12.0-15.5); LYMPH # 3.3 x10^3/uL (1.0-4.8); LYMPH % 25 % (24-48); MEAN CORPUSCULAR HEMOGLOBIN 26 pg (25-35); MEAN CORPUSCULAR HGB CONC 31 g/dL (31-37); MEAN CORPUSCULAR VOLUME 81 fL (79-100); MONO # 1.4 x10^3/uL (0.0-1.1); MONO % 10 % (0-9); NEUT # 8.5 x10^3uL (1.8-7.7); NEUT % 64 % (31-73); PLATELET COUNT 201 x10^3/uL (140-400); RED BLOOD COUNT 3.35 x10^6/uL (3.50-5.40); RED CELL DISTRIBUTION WIDTH 13.9 % (11.5-14.5); WHITE BLOOD COUNT 13.3 x10^3/uL (4.0-11.0)
[2018-08-04 06:20] VITALS: BP 102/62
[2018-08-04] MEDS: DOCUSATE SODIUM 100 MG CAPSULE. PO PRN ×2 (06:30→16:18)
[2018-08-04] MEDS: oxyCODONE/APAP 5/325 1 TAB TABLET PO PRN ×2 (06:32→16:19)
--- NOTE | 2018-08-04 08:23 | PDOC ---
Provider Note Provider Note Doing well VSS Uterus NTTP FU in AM ELIS GRIJALVA MD Aug 04, 2018 08:23
[2018-08-04] MEDS: FERROUS SULFATE 325 MG TABLET. PO SCH ×2 (08:30→16:18)
[2018-08-04 09:45] VITALS: BP 94/55
[2018-08-04 13:10] VITALS: BP 104/69
--- NOTE | 2018-08-04 16:27 | NUR ---
SS following up with referral regarding limited care and positive screen for Marijuana. SS discussed with and mother RN prior to meeting with mother in room. SS contacted Dr. Larson[facility] clinic who notified SS that pt received the first half of her care at [facility] and began seeing Dr. Larson on 05/07/2018. Dr. [facility]arson[facility] clinic reported that pt was seen on 05/07/2018 and then on 07/10/2018 and weekly from 07/10/2018 to . SS met with infants mother in room to assess circumstances surrounding the referral. As observed, infants mother was holding infant and was bonding well with infant. Infants mother reported that her Medicaid was not active until the end of June and it was difficult to make the appointments prior to that because she could not afford the cost. Infants mother reported that she lives with her grandmother and her one year old daughter. She reported that she has good family support and her family helps to financially support her. Infants mother reported that she does not currently work or go to school. She reported that her grandmother helps care for her daughter. Infants mother reported that she has a car seat and all needed supplies for and transportation to and from appointments. Infants mother reported that she would like seen at [facility] for pediatric care and asked for assistance from RN to set up the first appointment. RN notified. SS discussed positive Marijuana screen with mother. Mother admitted to using Marijuana during . SS provided infants mother with resources and referral information for the [facility]IES program, WIC, and [facility]. SS made report to [facility] hotline for positive drug screen. Intake# [id number]. and mother RN notified.
[2018-08-04 23:17] VITALS: BP 109/73
[2018-08-05] MEDS: IBUPROFEN 400 MG TABLET. PO PRN ×2 (01:17→10:52)
[2018-08-05 06:12] VITALS: BP 88/56
[2018-08-05] MEDS: DOCUSATE SODIUM 100 MG CAPSULE. PO PRN (10:52)
[2018-08-05] MEDS: FERROUS SULFATE 325 MG TABLET. PO SCH (10:52)
[2018-08-05 11:54] VITALS: BP 105/73
--- NOTE | 2018-08-05 13:29 | PDOC3 ---
OB DISCHARGE SUMMARY DATE OF ADMISSION: 08/03/18 DATE OF DISCHARGE: 08/05/18 REASON FOR ADMISSION: Onset of labor INTRAPARTUM PROCEDURES: Spontanous Vag Deliv DISCHARGE DIAGNOSIS: Term Delivered DISCHARGE INFORMATION: Activity (ad kitty), Diet (regular), Instructions (pelvic rest x 6 wks) HOSPITAL COURSE Term gestation delivered without complications. LUKE OCONNOR Jr, MD Aug 05, 2018 13:29
--- NOTE | 2018-08-05 13:29 | DISCH ---
DISCHARGE INSTRUCTIONS Condition on Discharge Condition on Discharge: Stable Activity After Discharge Activity Instructions for Disc: Activity as tolerated Lifting Instructions after Dis: No heavy lifting Driving Instructions after Dis: Do not drive today Diet after Discharge Diet after Discharge: Regular Contacting the DRBrittany after DC Call your doctor for: Concerns you may have Follow-Up Follow up with: Dr. Larson in 1 week. LUKE OCONNOR Jr, MD Aug 05, 2018 13:29
[2018-08-05] MEDS ORDERED: IBUP-1060 PO (13:31)
--- NOTE | 2018-08-05 15:09 | NUR ---
Discharge Discharge instructions given to patient at this time. No questions or concerns noted. To follow up in [address] Larson.
--- NOTE | 2018-08-05 15:17 | NUR ---
SS following up with hotline report. SS received email from [facility] reporting the following: This report was not assigned for assessment so discharge planning would just be up to doctor and hospital staff. DAKOTA Huertas Habilitative Interventionist Child Protective Services [place] [facility] [phone] SS notified the floor.
== END 2018-08-05 15:50 | disposition home or self-care (01) | DRG 806 ==
LOC: 3 SO LND 08:22 → OBSVTOIN 08:34 → 3 NORTH 14:00
PROVIDERS: ADMIT Specialist; ATTEND Specialist
PROC: 10E0XZZ Delivery of Products of Conception, External Approach (ICD-10-PCS; principal; 2018-08-03)
PROC: 0HQ9XZZ Repair Perineum Skin, External Approach (ICD-10-PCS; 2018-08-03)
DX: O70.0 First degree perineal laceration during delivery (principal); R71.0 Precipitous drop in hematocrit; Z37.0 Single live birth; Z3A.38 38 weeks gestation of pregnancy
CPT/HCPCS: 36415; 80307; 81001; 85025; 86592; 86850; 86900; 86901; G0378; G0379; J2590

== ENCOUNTER 2019-07-30 03:09 | Observation (INO) | payer OTHER ==
[2019-07-30 03:29] LABS: BILIRUBIN,URINE NEGATIVE (NEG); CLARITY,URINE CLEAR; COLOR,URINE YELLOW; NITRITE,URINE NEGATIVE (NEG); PROTEIN,URINE NEGATIVE (NEG-TRACE); UROBILINOGEN,URINE 0.2 mg/dL (0.2 mg/dL)
[2019-07-30] MEDS ORDERED: IV RINGERS,LACTATED 1000ML 1,000 ML IV PRN (03:30)
[2019-07-30 03:35] LABS: BARBITURATES NEG (NEG); BENZODIAZEPINES NEG (NEG); CANNABINOIDS POS (NEG); COCAINE NEG (NEG); METHADONE NEG (NEG); OPIATES NEG (NEG); PHENCYCLIDINE NEG (NEG)
[2019-07-30 03:41] LABS: AMPHETAMINE/METHAMPHETAMINE NEG (NEG)
[2019-07-30 03:43] LABS: SQUAMOUS EPITHELIAL CELL,UR FEW /LPF
[2019-07-30 03:44] LABS: RBC,URINE 0 /HPF (0-2)
[2019-07-30 03:45] LABS: BACTERIA,URINE FEW /HPF (0-FEW)
[2019-07-30] MEDS ORDERED: ACETAMINOPHEN 500 MG TABLET PO ONE (05:00)
== END 2019-07-30 05:40 | disposition home or self-care (01) ==
LOC: 3 SO LND 03:09
PROVIDERS: ADMIT Obstetrics & Gynecology; ATTEND Obstetrics & Gynecology
DX: O26.893 Other specified pregnancy related conditions, third trimester (principal); R10.9 Unspecified abdominal pain; M25.559 Pain in unspecified hip; Z3A.30 30 weeks gestation of pregnancy
CPT/HCPCS: 80307; 81001; 87086; G0378; G0379

== ENCOUNTER → 2019-08-18 | Outpatient (CLI) | payer OTHER ==
--- NOTE | 2019-08-18 15:06 | RAD ---
EXAM: Obstetrics sonogram. HISTORY: Size and dates discrepancy. TECHNIQUE: Sonographic imaging of a gravid uterus was performed. COMPARISON: None. FINDINGS: There is a single intrauterine fetus in cephalic presentation with a normal heart rate of 137 bpm. There is a grade 1 posterior placenta without evidence of placenta previa. The cervix is closed and measures 3.6 cm in length. The amniotic fluid index is normal at 8.3 cm. The stomach, kidneys, bladder, spine, brain, facial profile, extremities and heart are unremarkable. There is a three-vessel umbilical cord with normal insertion. The biparietal diameter is 8.0 cm, corresponding with 32 weeks and 0 days and the 39th percentile. The head circumference is 29.3 cm, corresponding with 32 weeks and 3 days and the 22nd percentile. The abdominal circumference is 26.7 cm, corresponding with 30 weeks and 6 days and the 26th percentile. The femoral length is 6.1 cm, corresponding with 31 weeks and 4 days and the 36th percentile. The estimated gestational age patient combined ultrasound measurements is 31 weeks and 5 days and the estimated due date is 10/15/2019. The estimated weight is 3 pounds and 13 ounces. This corresponds with the 36th percentile for a gestational age of 32 weeks and 0 days based on LMP. IMPRESSION: Single intrauterine fetus with normal heart rate and gestational age based on ultrasound measurements of 31 weeks and 5 days. The estimated weight is at the 36th percentile. Electronically signed by: Feli Pascual MD (08/18/2019 3:03 PM) [id number]
== END | disposition home or self-care (01) ==
LOC: US 13:26
PROVIDERS: ATTEND Obstetrics & Gynecology
DX: Z34.83 Encounter for supervision of other normal pregnancy, third trimester (principal); Z3A.31 31 weeks gestation of pregnancy
CPT/HCPCS: 76805

== ENCOUNTER 2019-09-28 14:52 | Observation (INO) | payer OTHER ==
[2019-09-28] MEDS ORDERED: IV RINGERS,LACTATED 1000ML 1,000 ML IV SCH (15:00)
[2019-09-28 15:28] LABS: AMNIO PT NEGATIVE
[2019-09-28 15:38] LABS: BILIRUBIN,URINE SMALL (NEG); CLARITY,URINE CLEAR; COLOR,URINE YELLOW; NITRITE,URINE NEGATIVE (NEG); PH,URINE 6.5 (<5.0-8.0); PROTEIN,URINE NEGATIVE (NEG-TRACE)
[2019-09-28 15:44] LABS: SQUAMOUS EPITHELIAL CELL,UR MOD /LPF
[2019-09-28 15:45] LABS: RBC,URINE 0 /HPF (0-2); WBC,URINE 20-40 /HPF (0-4)
[2019-09-28 15:46] LABS: BACTERIA,URINE FEW /HPF (0-FEW)
== END 2019-09-28 17:15 | disposition home or self-care (01) ==
LOC: 3 SO LND 14:52
PROVIDERS: ADMIT Obstetrics & Gynecology; ATTEND Obstetrics & Gynecology
DX: O42.92 Full-term premature rupture of membranes, unspecified as to length of time between rupture and onset of labor (principal); O62.9 Abnormality of forces of labor, unspecified; Z3A.38 38 weeks gestation of pregnancy; Z79.899 Other long term (current) drug therapy
CPT/HCPCS: 36415; 81001; 84112; 87086; G0378; G0379

== ENCOUNTER 2019-09-30 06:10 | Inpatient (IN) | payer OTHER ==
[~2019-09-30] VITALS: Ht 157.5 cm; Wt 64.0 kg
[2019-09-30] MEDS ORDERED: IV RINGERS,LACTATED 1000ML 1,000 ML IV SCH (06:19)
[2019-09-30] MEDS ORDERED: MAG HYDROX/ALUMINUM HYD/SIMETH 30 ML ORAL.SUSP PO PRN ×2 (06:30→08:15)
[2019-09-30] MEDS ORDERED: ONDANSETRON PF 4 MG/2 ML VIAL. IVP PRN (06:30)
[2019-09-30] MEDS ORDERED: OXYTOCIN 30 UNIT/500 ML PREMIX 500 ML IV PRN ×3 (06:30→08:15)
[2019-09-30] MEDS ORDERED: IBUPROFEN 400 MG TABLET. PO PRN (06:30)
[2019-09-30] MEDS ORDERED: LIDOCAINE 1% PF 30 ML VIAL. INJ PRN (06:30)
[2019-09-30] MEDS ORDERED: TERBUTALINE 1 MG/ML VIAL. SQ PRN (06:30)
[2019-09-30] MEDS ORDERED: 0.9 % SODIUM CHLORIDE 10 ML DISP.SYRIN. IV PRN ×2 (06:30→08:15)
[2019-09-30] MEDS ORDERED: ACETAMINOPHEN 325 MG TABLET. PO PRN ×2 (06:30→08:15)
[2019-09-30] MEDS ORDERED: BUTORPHANOL 2 MG/ML VIAL. IVP PRN (06:30)
[2019-09-30] MEDS ORDERED: fentaNYL PF VIAL 100 MCG/2 ML VIAL IVP PRN (06:30)
[2019-09-30 06:48] LABS: BASO % 1 % (0-3); EOS % 0 % (0-3); HEMATOCRIT 27.8 % (36.0-47.0); HEMOGLOBIN 8.8 g/dL (12.0-15.5); LYMPH # 2.4 x10^3/uL (1.0-4.8); LYMPH % 34 % (24-48); MEAN CORPUSCULAR HEMOGLOBIN 24 pg (25-35); MEAN CORPUSCULAR HGB CONC 32 g/dL (31-37); MEAN CORPUSCULAR VOLUME 77 fL (79-100); MONO # 0.7 x10^3/uL (0.0-1.1); MONO % 10 % (0-9); NEUT # 3.9 x10^3/uL (1.8-7.7); NEUT % 55 % (31-73); PLATELET COUNT 249 x10^3/uL (140-400); RED BLOOD COUNT 3.63 x10^6/uL (3.50-5.40); RED CELL DISTRIBUTION WIDTH 16.3 % (11.5-14.5); WHITE BLOOD COUNT 7.1 x10^3/uL (4.0-11.0)
[2019-09-30 07:11] VITALS: BP 122/71
--- NOTE | 2019-09-30 07:18 | PDOC1 ---
OB - History Hx of Present Care: Good Care Ultrasounds: Normal mid trimester US Obstetrical Complications: None Medical Complications: None Past Family/Social History * Past Medical, Surgical, Family and Obstetric Histories reviewed from chart. Rubella: Immune RPR/VDRL: Negative GBS Status: Negative HBsAG: Negative OB - Chief Complaint & HPI Date of Admission: Date of Admission: Sep 30, 2019 at 06:10 Chief Complaint/History : 3 Para: 2 EGA: 39 Reason for admission: active labor Admission Nurse Assessment Rev: Yes OB - Admission Exam Physical Exam Vitals: VS - Last 72 Hours, by Label Date Time Temp Pulse Resp B/P (MAP) Pulse Ox O2 Delivery O2 Flow Rate FiO2 09/30/19 07:11 98.2 79 20 122/71 (88) Room Air 98.2 09/30/19 06:57 20 Room Air HEENT: Normal Heart: Regular Rate Lungs: Clear Abdomen: Gravid, Non tender, Soft Extremities: Edema Reflexes: Normal Cervical Dilatation: 4cm Effacement: 100% Station: -1 Membranes: Intact Heart Rate: Normal Accelerations: Accelerations Present Decelerations: No decelerations Contractions on Admission: < 5 Minutes Apart Intensity: Firm Text A: 39 wks IUP Active labor P: Admit labor management. LUKE OCONNOR Jr, MD Sep 30, 2019 07:18
[2019-09-30] MEDS ORDERED: OXYTOCIN PREMIX 30 UNIT/500 ML NS BAG. IV ONE (07:30)
[2019-09-30 07:41] LABS: BILIRUBIN,URINE NEGATIVE (NEG); CLARITY,URINE CLEAR; COLOR,URINE YELLOW; NITRITE,URINE NEGATIVE (NEG); PH,URINE 6.5 (<5.0-8.0); PROTEIN,URINE NEGATIVE (NEG-TRACE)
[2019-09-30 07:55] LABS: AMORPHOUS SEDIMENT,UR PRESENT /HPF; BACTERIA,URINE FEW /HPF (0-FEW); SQUAMOUS EPITHELIAL CELL,UR MANY /LPF
--- NOTE | 2019-09-30 08:05 | PDOC ---
VAGINAL DELIVERY DATE DATE: 09/30/19 TIME: 08:03 : 3 Para: 3 EGA: 39 VAGINAL DELIVERY: VTX VACCUM ASSISTED: No PLACENTA: Spontaneous 8/9 SEX: Female WEIGHT Weight [ 2405 gm] Nuchal Cord: Yes, Times 1 Amniotic Fluid: Thin Meconium PAIN: Natural EPISIOTOMY: No EXTENSION: Yes (2nd degree midline laceration) REPAIRED WITH 2-0 vicryl EBL 300 ml COMPLICATIONS none CONDITION pt. stable Signs of Intrauterine Infectio: None Shoulder Dystocia: No LUKE OCONNOR Jr, MD Sep 30, 2019 08:04
[2019-09-30] MEDS ORDERED: BENZOCAINE 20% TOPICAL AEROSOL SPRAY 57GM CAN. TP PRN (08:15)
[2019-09-30] MEDS ORDERED: SIMETHICONE 80 MG TAB.CHEW PO PRN (08:15)
[2019-09-30] MEDS ORDERED: diphenhydrAMINE HCL 25 MG CAPSULE PO PRN (08:15)
[2019-09-30] MEDS ORDERED: TDaP (Adacel) per PROTOCOL. MC PRN (08:15)
[2019-09-30] MEDS ORDERED: MMR per PROTOCOL. MC PRN (08:15)
[2019-09-30] MEDS ORDERED: oxyCODONE/APAP 5/325 1 TAB TABLET PO PRN (08:15)
[2019-09-30] MEDS ORDERED: HYDROCORTISONE 1% TOPICAL OINTMENT 30GM TUBE. TP PRN (08:15)
[2019-09-30] MEDS ORDERED: ZOLPIDEM 5 MG TABLET. PO PRN (08:15)
[2019-09-30] MEDS ORDERED: PHENYLEPH/MINERAL OIL/PETROLAT RECTAL OINTMENT TUBE. RC PRN (08:15)
[2019-09-30] MEDS ORDERED: MAGNESIUM HYDROXIDE 2,400 MG/30 ML ORAL.SUSP. PO PRN (08:15)
[2019-09-30] MEDS: IBUPROFEN 400 MG TABLET. PO PRN ×2 (10:03→20:18)
[2019-09-30 10:30] VITALS: BP 107/66
[2019-09-30 11:30] VITALS: BP 99/64
[2019-09-30] MEDS: MULTIVITAMIN with MINERAL TABLET. PO SCH (13:53)
[2019-09-30] MEDS: FERROUS SULFATE 325 MG TABLET. PO SCH ×2 (13:53→20:58)
[2019-09-30 18:30] VITALS: BP 107/74
[2019-09-30 20:49] VITALS: BP 105/73
[2019-09-30] MEDS: DOCUSATE SODIUM 100 MG CAPSULE. PO PRN (20:58)
[2019-10-01 00:13] VITALS: BP 104/69
[2019-10-01 04:31] VITALS: BP 97/61
[2019-10-01 04:33] LABS: BASO # 0.1 x10^3/uL (0.0-0.2); BASO % 1 % (0-3); EOS # 0.1 x10^3/uL (0.0-0.7); EOS % 1 % (0-3); LYMPH # 2.9 x10^3/uL (1.0-4.8); LYMPH % 27 % (24-48); MEAN CORPUSCULAR HEMOGLOBIN 24 pg (25-35); MEAN CORPUSCULAR HGB CONC 32 g/dL (31-37); MEAN CORPUSCULAR VOLUME 76 fL (79-100); MONO % 9 % (0-9); NEUT # 6.6 x10^3/uL (1.8-7.7); NEUT % 62 % (31-73); PLATELET COUNT 222 x10^3/uL (140-400); RED BLOOD COUNT 3.31 x10^6/uL (3.50-5.40); RED CELL DISTRIBUTION WIDTH 16.3 % (11.5-14.5); WHITE BLOOD COUNT 10.6 x10^3/uL (4.0-11.0)
--- NOTE | 2019-10-01 07:59 | PDOC3 ---
OB DISCHARGE SUMMARY DATE OF ADMISSION: 09/30/19 DATE OF DISCHARGE: 10/01/19 REASON FOR ADMISSION: Onset of labor INTRAPARTUM PROCEDURES: Spontanous Vag Deliv DISCHARGE DIAGNOSIS: Term Delivered DISCHARGE INFORMATION: Activity (ad kitty), Diet (regular), Instructions (pelvic rest x 6 wks) HOSPITAL COURSE Term gestation delivered vaginally without complications. LUKE OCONNOR Jr, MD Oct 01, 2019 07:59
[2019-10-01] MEDS ORDERED: FERROUS SULFATE 325 MG TABLET. PO SCH (08:00)
[2019-10-01] MEDS ORDERED: IBUP-1060 PO (08:00)
--- NOTE | 2019-10-01 08:01 | DISCH ---
DISCHARGE INSTRUCTIONS Condition on Discharge Condition on Discharge: Stable Activity After Discharge Activity Instructions for Disc: Activity as tolerated Lifting Instructions after Dis: No heavy lifting Driving Instructions after Dis: Do not drive today Diet after Discharge Diet after Discharge: Regular Contacting the DRBrittany after DC Call your doctor for: Concerns you may have Follow-Up Follow up with: Dr. Jennings in 6 wks LUKE JENNINGS Jr, MD Oct 01, 2019 08:01
[2019-10-01] MEDS: FERROUS SULFATE 325 MG TABLET. PO SCH (09:39)
[2019-10-01] MEDS: MULTIVITAMIN with MINERAL TABLET. PO SCH (09:39)
[2019-10-01] MEDS: DOCUSATE SODIUM 100 MG CAPSULE. PO PRN (09:39)
[2019-10-01] MEDS: IBUPROFEN 400 MG TABLET. PO PRN (09:40)
[2019-10-01 09:45] VITALS: BP 107/68
[2019-10-01 12:31] VITALS: BP 106/75
--- NOTE | 2019-10-01 12:50 | NUR ---
Discharge and follow up instructions given to pt. Rx for Ibuprofen also given. Pt denied any questions or complaints at time of discharge. Walked pt out of the hospital with her in a carrier and her mother at her side.
--- NOTE | 2019-10-05 09:06 | PATHOLOGY ---
[facility] Accession Number: [id number] . 01 Material submitted: . placenta - 38 WEEK PLACENTA . 01 Clinical history: . 38.5 week placenta, low Hgb 8.8 EDC: 10/05/2019 P: 2 8, 9 . 02 Diagnosis: Placenta, vaginal delivery: - Mature mccollum placenta weighing 588 grams (at approximately the 80th percentile for a 38 week gestation). - Focally thin (0.8 cm in diameter) three vessel umbilical cord with eccentric insertion into the chorionic plate, measuring 51 cm in length, and with a remnant omphalomesenteric duct. - Meconium staining of membranes. - Acute deciduitis. - Chronic lymphocytic deciduitis. - Recent and remote retromembranous hematoma. - Chronic villitis, with areas of villous agglutination, and focally associated acute intervillositis. (MLK/db; 10/02/2019) LBQ 10/05/2019 0802 Local . 02 Electronically signed: . Shakila Bradley MD, Pathologist NPI- [id number] . 01 Gross description: . The specimen is received in formalin labeled "Johnson, Tyrrosemary, placenta" and consists of an oval mccollum placenta measuring 17.0 x 14.5 x 3.5 cm and weighing 488 g after removal of membranes and umbilical cord. The membranes are yellow-peters and thickened displaying a circumvallate insertion. The surface is bluegray to slightly green and well vascularized with an eccentrically inserted 3 vessel umbilical cord, 2.8 cm from edge. The cord measures 51.5 cm in length and ranging from 0.8-1.4 cm in diameter. The cord shows moderate twists with focal edema and no true knots. The maternal surface shows complete and intact cotyledons with minimal adherent clot. Sectioning reveals a maroon-red and spongy parenchyma with no gross lesions. Nail Specialist sections are submitted as follows: . A1: Periphery A2: Umbilical cord and membrane rolls A3-A4: Full-thickness section (SDY; 10/01/2019) SYU/SYU 10/01/2019 1349 Local . 02 Pathologist provided ICD-10: O43.893, O77.0, Z37.0, Z3A.38 . 02 CPT . [id number] Performed at: 01 [facility] [address] [place] [address] [id number] MD Robert Gregory MD Phone: [phone] Performed at: [address] [id number] MD Hudson Lucia MD Phone: [phone]
== END 2019-10-01 12:50 | disposition home or self-care (01) | DRG 807 ==
LOC: 3 SO LND 06:10 → OBSVTOIN 06:10 → 3 NORTH 10:30
PROVIDERS: ADMIT Obstetrics & Gynecology; ATTEND Obstetrics & Gynecology
PROC: 10E0XZZ Delivery of Products of Conception, External Approach (ICD-10-PCS; principal; 2019-09-30)
PROC: 0KQM0ZZ Repair Perineum Muscle, Open Approach (ICD-10-PCS; 2019-09-30)
DX: O77.0 Labor and delivery complicated by meconium in amniotic fluid (principal); Z37.0 Single live birth; O69.81X0 Labor and delivery complicated by cord around neck, without compression, not applicable or unspecified; Z3A.39 39 weeks gestation of pregnancy; O70.1 Second degree perineal laceration during delivery
CPT/HCPCS: 36415; 81001; 85025; 86592; 86850; 86900; 86901; 87086; J0595; J2590; J7120; G0378